=== PATIENT | female | born 1960 | race Caucasian/White ===

== ENCOUNTER 2022-10-05 03:51 | Inpatient (IN) | payer MEDICAID ==
[~2022-10-05] VITALS: Ht 160 cm; Wt 73.0 kg
[2022-10-05 04:29] LABS: Basophils # (auto) 0.1 10 ^3/uL (0-0.2); Basophils % (auto) 0.4 % (0.0-2.0); Eosinophils # (auto) 0 10 ^3/uL (0-0.8); Hematocrit 44.6 % (36.0-46.0); Hemoglobin 15.7 g/dL (12.2-16.2); Lymphocytes # (auto) 1.1 10 ^3/uL (0.4-5.4); Lymphocytes % (auto) 5.2 % (10.0-50.0); Mean Corpuscular Hemoglobin 31.1 pg (28.0-32.0); Mean Corpuscular Hgb Conc. 35.3 g/dL (32.0-36.0); Mean Corpuscular Volume 88.1 fL (80.0-100.0); Monocytes % (auto) 4.8 % (0.0-12.0); Neutrophils # (auto) 19.6 10 ^3/uL (1.6-8.6); Neutrophils % (auto) 89.6 % (37.0-80.0); Nucleated Red Blood Cells % 0.1 %; Red Blood Cells 5.06 10^6/uL (4.0-5.20); Red Cell Distribution Width 13.2 % (11.8-14.3); White Blood Cell 21.9 10^3/uL (4.4-10.8)
[2022-10-05 04:37] LABS: INR 1.1 (0.9-1.15)
[2022-10-05 04:39] LABS: Albumin 2.6 g/dL (3.4-5.0); BUN/Creatinine Ratio 60.9; Calcium 11.9 mg/dL (8.5-10.1); Magnesium 2.1 mg/dL (1.6-2.6); Potassium 3.4 mmol/L (3.5-5.1)
[2022-10-05 04:41] LABS: Bilirubin, Total 0.7 mg/dL (0.2-1.0); Total Protein 6.9 g/dL (6.4-8.2)
[2022-10-05] MEDS ORDERED: ALBUTEROL MEDNEB 2.5 mg/3ml NEB ONE (05:57)
[2022-10-05] MEDS ORDERED: LACTATED RINGER'S 1,000 ML IV ONE ×2 (06:00)
[2022-10-05] MEDS ORDERED: ALBUTEROL SULF 2.5 MG/0.5ML(0.5%) NEB SOLN NEB ONE (06:00)
[2022-10-05] MEDS ORDERED: AZITHROMYCIN 500MG/ 250ML 250 ML IV ONE (06:00)
[2022-10-05] MEDS ORDERED: cefTRIAXone 1GM/50ML D5W 50 ML IV ONE (06:00)
[2022-10-05] MEDS ORDERED: TEMAZEPAM 15 MG CAP PO PRN (06:15)
[2022-10-05] MEDS ORDERED: DEXTROSE (50%) 50ML SYRG IV PRN (06:15)
[2022-10-05] MEDS ORDERED: SODIUM CHLORIDE 0.9% 1,000 ML IV SCH (06:15)
[2022-10-05] MEDS ORDERED: MORPHINE SULFATE INJ 2 MG/ml SYRG IV PRN (06:15)
[2022-10-05] MEDS ORDERED: HYDROcodone-ACET 5/325MG TAB PO PRN (06:15)
[2022-10-05] MEDS ORDERED: MAALOX PLUS or MAALOX 30 ML PO PRN (06:15)
[2022-10-05] MEDS ORDERED: ACETAMINOPHEN 325 MG TAB PO PRN (06:15)
[2022-10-05] MEDS ORDERED: DOCUSATE SOD 100 MG CAP PO PRN (06:15)
[2022-10-05] MEDS ORDERED: LORazepam 0.5 MG TAB PO PRN (06:15)
[2022-10-05] MEDS ORDERED: ALBUTEROL SULF 2.5 MG/0.5ML(0.5%) NEB SOLN NEB PRN (06:15)
[2022-10-05 06:58] VITALS: BP 129/82
[2022-10-05] MEDS: ACCU-CHEK COMFORT CURVE STRIP VI SCH ×4 (07:24→22:37)
[2022-10-05] MEDS: InsuLIN REG 1unit/0.01ml Soln (100units/ml) SC SCH ×4 (07:24→22:47)
[2022-10-05] MEDS ORDERED: methylPREDNISolone SOD SUCC 40 MG/ML VL IM SCH (10:00)
[2022-10-06] MEDS: InsuLIN REG 1unit/0.01ml Soln (100units/ml) SC SCH ×4 (06:45→21:15)
[2022-10-06] MEDS: ACCU-CHEK COMFORT CURVE STRIP VI SCH ×4 (06:45→21:16)
[2022-10-06] MEDS: cefTRIAXone 1GM/50ML D5W 50 ML IV SCH (11:02)
[2022-10-06] MEDS: AZITHROMYCIN 500MG/ 250ML 250 ML IV SCH (11:34)
[2022-10-06 16:04] VITALS: BP 175/96
[2022-10-06 17:00] VITALS: BP 175/96
[2022-10-06] MEDS ORDERED: ALBUTEROL MEDNEB 2.5 mg/3ml NEB ONE (18:10)
[2022-10-06] MEDS ORDERED: SERT25TA14 PO (19:38)
[2022-10-06] MEDS ORDERED: INSLANTI SC (19:38)
[2022-10-06] MEDS ORDERED: LEVO75TA6 PO (19:38)
[2022-10-06] MEDS ORDERED: ONDA-144 PO (19:38)
[2022-10-06] MEDS ORDERED: POTA-180 PO (19:38)
[2022-10-06] MEDS ORDERED: OXYB5TAB61 PO (19:38)
[2022-10-06] MEDS ORDERED: REPA1TAB5 PO (19:38)
[2022-10-06] MEDS ORDERED: ATOR40TA52 PO (19:38)
[2022-10-06 20:00] VITALS: BP 139/78
[2022-10-06 22:00] VITALS: BP 139/78
[2022-10-07 05:00] VITALS: BP 150/93
[2022-10-07 06:13] LABS: Basophils # (auto) 0 10 ^3/uL (0-0.2); Basophils % (auto) 0.1 % (0.0-2.0); Eosinophils # (auto) 0 10 ^3/uL (0-0.8); Eosinophils % (auto) 0.3 % (0.0-7.0); Hematocrit 43.4 % (36.0-46.0); Hemoglobin 15.2 g/dL (12.2-16.2); Lymphocytes # (auto) 1.7 10 ^3/uL (0.4-5.4); Lymphocytes % (auto) 9.6 % (10.0-50.0); Mean Corpuscular Hemoglobin 31.1 pg (28.0-32.0); Monocytes # (auto) 1.2 10 ^3/uL (0-1.3); Monocytes % (auto) 6.6 % (0.0-12.0); Neutrophils # (auto) 14.8 10 ^3/uL (1.6-8.6); Neutrophils % (auto) 83.4 % (37.0-80.0); Red Blood Cells 4.88 10^6/uL (4.0-5.20); Red Cell Distribution Width 13.5 % (11.8-14.3); White Blood Cell 17.8 10^3/uL (4.4-10.8)
[2022-10-07 06:24] LABS: BUN/Creatinine Ratio 41.9; Calcium 10.4 mg/dL (8.5-10.1); Potassium 3.1 mmol/L (3.5-5.1)
[2022-10-07] MEDS: ACCU-CHEK COMFORT CURVE STRIP VI SCH ×4 (06:26→21:41)
[2022-10-07] MEDS: InsuLIN REG 1unit/0.01ml Soln (100units/ml) SC SCH ×4 (06:27→21:41)
[2022-10-07 08:00] VITALS: BP 131/76
[2022-10-07 09:00] VITALS: BP 131/76
[2022-10-07] MEDS: cefTRIAXone 1GM/50ML D5W 50 ML IV SCH (10:26)
[2022-10-07] MEDS: ONDANSETRON HCL 4 MG/2 ML VIAL IV PRN ×2 (10:28→14:46)
[2022-10-07] MEDS: AZITHROMYCIN 500MG/ 250ML 250 ML IV SCH (11:49)
[2022-10-07] MEDS: POTASSIUM EFFERVESENT TAB 25 MEQ GT ONE ×2 (11:50→12:00)
[2022-10-07 13:00] VITALS: BP 151/74
[2022-10-07] MEDS ORDERED: POTASSIUM CHLORIDE 40 MEQ, LIDOCAINE 1% (LOCAL ANESTH.) 4 ML in SODIUM CHL 0.9% 250 ML IV ONE (13:45)
[2022-10-07 13:49] LABS: Hepatitis C Antibody Negative (Negative)
[2022-10-07 17:00] VITALS: BP 100/56
[2022-10-07 22:00] VITALS: BP 120/66
[2022-10-08 05:00] VITALS: BP 125/59
[2022-10-08] MEDS: ACCU-CHEK COMFORT CURVE STRIP VI SCH ×4 (06:22→21:44)
[2022-10-08] MEDS: InsuLIN REG 1unit/0.01ml Soln (100units/ml) SC SCH ×4 (06:25→21:44)
[2022-10-08 09:00] VITALS: BP 159/77
[2022-10-08] MEDS: cefTRIAXone 1GM/50ML D5W 50 ML IV SCH (10:09)
[2022-10-08] MEDS ORDERED: AMOX500T86 PO (10:22)
[2022-10-08] MEDS: AZITHROMYCIN 500MG/ 250ML 250 ML IV SCH (11:08)
[2022-10-08 13:00] VITALS: BP 164/85
[2022-10-08] MEDS: ONDANSETRON HCL 4 MG/2 ML VIAL IV PRN ×2 (13:27→21:34)
[2022-10-08 17:00] VITALS: BP 140/71
[2022-10-08 22:00] VITALS: BP 127/69
[2022-10-09 02:44] VITALS: BP 127/69
[2022-10-09 05:00] VITALS: BP 117/70
[2022-10-09] MEDS: ACCU-CHEK COMFORT CURVE STRIP VI SCH ×2 (06:00→11:42)
[2022-10-09] MEDS: InsuLIN REG 1unit/0.01ml Soln (100units/ml) SC SCH ×2 (06:00→12:30)
[2022-10-09 09:00] VITALS: BP 117/59
[2022-10-09] MEDS: cefTRIAXone 1GM/50ML D5W 50 ML IV SCH (09:00)
[2022-10-09] MEDS: AZITHROMYCIN 500MG/ 250ML 250 ML IV SCH (10:00)
[2022-10-09 10:19] LABS: Potassium 3.6 mmol/L (3.5-5.1)
[2022-10-09 10:23] LABS: Calcium 9.8 mg/dL (8.5-10.1)
[2022-10-09 13:00] VITALS: BP 118/71
== END 2022-10-09 13:20 | disposition left against medical advice (07) | DRG 139 ==
LOC: EDBD 03:51 → ER 03:51 → TELE 06:14 → TELE-EAST 10-06 16:18 → EAST 10-09 06:08
PROVIDERS: ADMIT Hospitalist; ATTEND Internal Medicine Pulmonary Disease
DX: J18.9 Pneumonia, unspecified organism (principal); J96.01 Acute respiratory failure with hypoxia; E11.9 Type 2 diabetes mellitus without complications; Z53.29 Procedure and treatment not carried out because of patient's decision for other reasons; R79.89 Other specified abnormal findings of blood chemistry; Z20.822 Contact with and (suspected) exposure to COVID-19
CPT/HCPCS: 36415; 71045; 80048; 80053; 82962; 83735; 83880; 84484; 85025; 85379; 85610; 85730; 86803; 87040; 87340; 87426; 87804; 93005; 93970; 94640; 96374; G0378; J0696; J1815; J2001; J2405